=== PATIENT | female | born 1980 | race Caucasian/White ===

== ENCOUNTER 2018-04-27 08:12 | Outpatient (CLI) | payer OTHER ==
--- NOTE | 2018-04-27 10:11 | ULT ---
THYROID ULTRASOUND: Date: 04/27/18 COMPARISON: None. HISTORY: 37-year-old female who reports a left-sided neck mass for 2 weeks. TECHNIQUE: Multiplanar Mendez scale sonographic imaging of the thyroid gland obtained. FINDINGS: Thyroid isthmus measures 6.0 mm in AP dimension. Right lobe measures 4.5 x 1.9 x 1.9 cm. There is a hypoechoic lesion within the anterior aspect of th e mid portion of the right lobe measuring 4.0 x 5.0 x 7.0 mm. Within the left lobe of the thyroid gland, there is a dominant solid and cystic nodule measuring 3.7 x 4.1 x 2.5 cm. IMPRESSION: TIRADS 4 lesion within the left lobe of the thyroid gland. Given size of greater than 1.5 cm, ultraso und guided fine needle aspiration advised. CODE T. POS: DANELLE
== END 2018-04-27 08:13 | disposition home or self-care (01) ==
LOC: NAV ULT 08:12
PROVIDERS: ATTEND Family Medicine
DX: R22.1 Localized swelling, mass and lump, neck (principal); E07.9 Disorder of thyroid, unspecified
CPT/HCPCS: 76536